=== PATIENT | male | born 1970 | race Caucasian/White ===

== ENCOUNTER 2018-03-07 17:46 | Observation (INO) ==
[2018-03-08] MEDS ORDERED: Naloxone 0.4 MG/ML INJ IVP PRN (03:02)
[2018-03-08] MEDS ORDERED: Acetaminophen 325 MG TABLET PO PRN (03:05)
[2018-03-08] MEDS ORDERED: Dextrose Gel 15 GM/37.5 ML TUBE PO PRN ×2 (03:11)
[2018-03-08] MEDS ORDERED: *HR* Dextrose 50 % in Water (Syg) 50 ML SYRINGE IVP PRN (03:11)
[2018-03-08] MEDS ORDERED: D5% in Water 1,000 ML IVC PRN (03:11)
[2018-03-08] MEDS ORDERED: Insulin LISPRO 300 UNITS/3 ML VIAL SQ SCH (06:00)
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
[2018-03-08 07:04] LABS: Hematocrit 45.4 % (37.5-50.1); Hemoglobin 14.4 g/dL (12.9-16.9); Mean Corpuscular HGB Conc 31.7 g/dL (31.6-35.5); Mean Corpuscular Hemoglobin 27.4 pg (28.0-33.3); Mean Corpuscular Volume 86.5 fL (83.0-100.0); Platelet Count 213 K/mcL (140-400); Red Blood Count 5.25 M/mcL (4.19-5.50); Red Cell Distribution Width 15.9 % (11.5-14.5)
[2018-03-08 07:16] VITALS: BP 111/68
[2018-03-08 07:26] LABS: Alanine Aminotransferase 25 Units/L (7-52); Albumin 3.8 g/dL (3.5-5.7); Albumin/Globulin Ratio 1.5 (1.1-2.2); Alkaline Phosphatase 62 Units/L (34-104); Aspartate Amino Transferase 4 Units/L (13-39); BUN/Creatinine Ratio 9 (6-26); Bilirubin,Total 0.4 mg/dL (0.3-1.0); Blood Urea Nitrogen 9 mg/dL (6-20); Calcium 8.7 mg/dL (8.6-10.3); Carbon Dioxide 28 mEq/L (23-29); Chloride 102 mEq/L (98-107); Globulin 2.5 g/dL (2.4-3.5); Glucose 126 mg/dL (70-105); Osmolality,Calculated 284 (280-300); Potassium 3.8 mEq/L (3.5-5.1); Sodium 137 mEq/L (136-145); Total Protein 6.3 g/dL (6.4-8.9); eGFR For Non-African Americans > 60 (> 60)
[2018-03-08] MEDS ORDERED: Nitroglycerin 0.4 MG TAB.SUBL SL PRN (08:43)
[2018-03-08] MEDS ORDERED: Dapagliflozin Propanediol [Farxiga] 10 MG PO SCH (09:00)
[2018-03-08] MEDS ORDERED: amLODIPine 5 MG TABLET PO SCH (09:00)
[2018-03-08] MEDS ORDERED: Fenofibrate 54 MG TABLET PO SCH (09:00)
[2018-03-08] MEDS ORDERED: Insulin DETEMIR 100 UNIT/ML X5UNITS SQ SCH (09:00)
--- NOTE | 2018-03-08 10:14 | Discharge Summary ---
- NOTES TO OUTPATIENT PROVIDER Notes to Outpatient Provider: f/u with PCP in one week. f/u with Cardiology Dr. Morales in 1 week. Please f/u with your psychiatrist closely for medication adjustment for your Anxiety / Bipolar Orders not resulted at time of discharge: Pending orders 03/08/18 12:35 Troponin I Q6H Date of Encounter: 03/08/18 Time of Encounter: 10:11 - Discharge Diagnosis (1) Chest pain Priority: Primary Status: Acute Qualifiers: Qualified Code(s): R07.9 - Chest pain, unspecified (2) Bipolar 2 disorder Priority: Secondary Status: Acute (3) Anxiety Priority: Secondary Status: Acute (4) Morbid obesity with BMI of 45.0-49.9, adult Priority: Secondary Status: Acute (5) MILAGROS on CPAP Priority: Secondary Status: Acute (6) Diabetes Priority: Secondary Status: Acute Qualifiers: Diabetes mellitus type: type 2 Diabetes mellitus penitentiary insulin use: with penitentiary use Diabetes mellitus complication status: with unspecified complications Qualified Code(s): E11.8 - Type 2 diabetes mellitus with unspecified complications; Z79.4 - terminal supervisor (current) use of insulin (7) Hypothyroidism Priority: Secondary Status: Acute Qualifiers: Hypothyroidism type: unspecified Qualified Code(s): E03.9 - Hypothyroidism, unspecified Hospital course: Mr. Nix is a 47 year old male known past medical history of COPD, diabetes type II, GERD, hyperlipidemia, morbid obesity, MILAGROS with the CPAP, anxiety and bipolar who had left heart catheterization on 07/21 showed normal coronary arteries pt presented to ER with chest pressure developed after he took a flight of stair. He had associated diaphoresis, nausea, and shortness of breath. He had recently seen his bilingual research interviewer, Dr. Morales, who prescribed him nitroglycerin. Delvin marytoña was admitted in the hospital and placed him on wholesale manager. Checked his serial troponin which came back is negative. His EKG did not show any acute ischemic changes. Talked to bilingual research interviewer, who recommend to start him on calcium channel sisi at low dose to improve coronary vaso spasm. So placed him on Norvasc 2.5mg since his BP runs little low. It does look like patient does have severe anxiety issues and follow with the psychiatrist as an outpatient. Recommend him to follow up with the psychiatrist as schedule before. Will d/c him home in stable condition today - Time Spent with Patient Total time spent providing and/or coordinating discharge services: - Discharge Medications Prescriptions: amLODIPine [Norvasc] 2.5 mg PO DAILY #15 tablet Aspirin Enteric Coated [Aspirin EC] 81 mg PO DAILY #30 tablet. Home Medications: Albuterol Sulfate [Proair Hfa] 2 puff IH BID 07/29/17 [History] Albuterol Sulfate [Ventolin Hfa] 2 puff IH Q6H PRN 07/29/17 [History] Dapagliflozin Propanediol [Farxiga] 10 mg PO DAILY 07/29/17 [History] Fenofibrate Nanocrystallized [Triglide] 160 mg PO DAILY 07/29/17 [History] Glimepiride [Amaryl] 4 mg PO BID 07/29/17 [History] Insulin DETEMIR [Levemir] 80 unit SQ QAM 07/29/17 [History] Ipratropium/Albuterol Sulfate [Combivent Respimat 20-100 Mcg] 2 puff IH BID 07/29/17 [History] Levothyroxine [Synthroid] 75 mcg PO DAILY 07/29/17 [History] Nitroglycerin [Nitrostat] 0.4 mg SL Q5-6MIN PRN 07/29/17 [History] Pantoprazole Sodium [Protonix] 40 mg PO DAILY 07/29/17 [History] Pravastatin Sodium [Pravachol] 20 mg PO DAILY 07/29/17 [History] Tamsulosin [Flomax] 0.4 mg PO HS 07/29/17 [History] Testosterone [Androgel] 4 applic TD DAILY 07/29/17 [History] cloZAPine [Clozaril] 200 mg PO HS 07/29/17 [History] Liraglutide [Victoza 3-Jose] 1.8 mg SQ DAILY 03/07/18 [History] Aspirin Enteric Coated [Aspirin EC] 81 mg PO DAILY #30 tablet. 03/08/18 [Rx] amLODIPine [Norvasc] 2.5 mg PO DAILY #15 tablet 03/08/18 [Rx] Allergies/Adverse Reactions: Allergy/AdvReac Type Severity Reaction Status Date / Time quetiapine [From Seroquel] AdvReac Confusion Verified 11/28/16 09:54 Date of admission: 03/07/18 21:59 Primary care physician: Juna M Stoddard MD - Constitutional Vitals: Temp Pulse Resp BP Pulse Ox 97.8 F 83 16 111/68 95 03/08/18 07:13 03/08/18 07:13 03/08/18 07:13 03/08/18 07:13 03/08/18 07:13 General appearance: Present: cooperative, A&O X 3, pleasant, no acute distress, obese, answers questions appropriately Exam: Gen: Alert, awake, Oriented to time,place and person Chest: Diminished breath sounds B/L, No wheezing, No crackles, No rales Heart: S1S2+ RRR No murmurs Abd: Soft, NT, BS +, No organomegaly Ext: No edema, pulses are palpable, No calf tenderness Neuro : Benign findings Skin: No rash. - Patient Status Disposition: Home, Self-Care Condition: Good Overall status at discharge: patient is back to baseline - Discharge Instructions Follow Up With: Juan M Stoddard MD [Primary Care Provider] - Alexsander Morales DO [Partnered Physician] - - Diet and Activity Activity: increase activity as tolerated Diet: low salt diet
[2018-03-08] MEDS ORDERED: *HR* Heparin 5,000 UNIT/ML VIAL SQ SCH (18:00)
[2018-03-08] MEDS ORDERED: cloZAPine 100 MG TABLET PO SCH (21:00)
== END 2018-03-08 11:02 | disposition home or self-care (01) ==
LOC: 3BNU → SUATTDRO 21:59
PROVIDERS: ADMIT Internal Medicine Cardiovascular Disease; ATTEND Family Medicine